=== PATIENT | female | born 1970 | race Caucasian/White ===

== ENCOUNTER 2022-01-22 17:54 | Emergency (ER) | payer BC ==
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
[2022-01-22 18:45] LABS: Hematocrit 42.4 % (35-47); Hemoglobin 13.2 gm/dl (12.0-16.0); Mean Cell Volume 87.8 fl (78-100); Mean Corpuscular Hemoglobin 27.3 pg (26-32); Mean Corpuscular Hgb Concent. 31.1 g/dl (32-36); Mean Platelet Volume 8.8 fl (7.5-11.0); Platelet Count 278 K/mm3 (150-450); Red Blood Count 4.83 M/mm3 (4.1-5.4); Red Cell Distribution Width 16.6 % (11.5-14.0); White Blood Count 15.3 K/mm3 (4.0-10.5)
[2022-01-22 18:49] LABS: Appearance SLIGHTLY CLOUDY (CLEAR); Bacteria RARE /HPF (NEGATIVE); Bilirubin NEGATIVE (NEGATIVE); Blood NEGATIVE Ery/ul (0-5); Epithelial Cells RARE /HPF (FEW); Glucose NEGATIVE (NEGATIVE); Ketones NEGATIVE (NEGATIVE); Leukocyte Esterase SMALL (NEGATIVE); Nitrite NEGATIVE (NEGATIVE); Protein,Urine Dip NEGATIVE (Negative); RBC 0-2 /HPF (0-2); Specific Gravity 1.026 (1.005-1.025); Urobilinogen 2 mg/dL (0-1)
[2022-01-22 20:28] LABS: Eosinophil 1 % (0.00-3.0); Lymphocytes 26 % (24-44); Monocyte 1 % (0.0-12.0); Neutrophils 72 % (36.0-66.0); Platelet Estimate NORMAL (NORMAL); Total Cells Counted 100
[2022-01-22 22:05] VITALS: BP 124/65; PULSE 84; O2SAT 96
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
== END 2022-01-22 22:15 | disposition home or self-care (01) ==
LOC: ED 17:54
DX: S62.617A Displaced fracture of proximal phalanx of left little finger, initial encounter for closed fracture (principal); S39.012A Strain of muscle, fascia and tendon of lower back, initial encounter; S16.1XXA Strain of muscle, fascia and tendon at neck level, initial encounter; V59.49XA Driver of pick-up truck or van injured in collision with other motor vehicles in traffic accident, initial encounter; M25.562 Pain in left knee; R07.81 Pleurodynia
CPT/HCPCS: 36415; 71045; 71100; 72050; 72100; 73130; 73562; 81001; 85025; 99285